=== PATIENT | male | born 1945 | race Caucasian/White ===

== ENCOUNTER 2023-02-28 13:42 | Inpatient (IN) | payer MEDICARE ==
[~2023-02-28 13:42] MED LIST: Iopamidol-370 76% 500 ML MDV (1 ML CHARGE) ONE
[2023-02-28 14:33] LABS: #Eosinphils 0.1 thou/uL (0.0-0.7); #Monocytes 0.8 thou/uL (0.11-0.59); #Neutrophils 4.6 thou/uL (1.40-6.50); %Basophils 0.5 % (0.0-1.0); %Eosinophils 1.9 % (0.0-10.0); %Lymphocytes 15.1 % (21.0-51.0); %Monocytes 11.6 % (0.0-10.0); %Neutrophils 70.7 % (42.0-75.0); Hematocrit 43.2 % (42.0-52.0); Hemoglobin 14.4 g/dL (14.0-18.0); Mean Corpuscular HGB CONC 33.3 g/dL (32.0-36.0); Mean Corpuscular Hemoglobin 29.9 pg (27.0-31.0); Mean Corpuscular Volume 89.6 fl (78.0-98.0); Mean Platelet Volume 10.1 fL (7.4-10.4); Platelet Count 188 10x3/uL (130-400); RBC Distribution Width 14.9 % (11.5-14.5); Red Blood Cell (RBC) Count 4.82 mill/uL (4.70-6.10); White Blood Cell (WBC) Count 6.5 10x3/uL (4.8-10.8)
[2023-02-28 15:00] LABS: ALT (SGPT) 11 U/L (8-55); AST (SGOT) 15 U/L (5-34); Albumin 4.3 g/dL (3.4-4.8); Alkaline Phosphatase 98 U/L (40-110); Anion Gap 13 mmol/L (10-20); BUN (Urea Nitrogen) 12 mg/dL (8.4-25.7); Bilirubin, Total 0.6 mg/dL (0.2-1.2); Calc. Creatinine Clearance 0 mL/min (70-130); Calcium 9.1 mg/dL (7.8-10.44); Carbon Dioxide 26 mmol/L (23-31); Chloride 99 mmol/L (98-107); Estimated GFR 90; Globulin 3.2 g/dL (2.4-3.5); Glucose 98 mg/dL (83-110); Potassium 4.3 mmol/L (3.5-5.1); Protein, Total 7.5 g/dL (5.8-8.1); Sodium 134 mmol/L (136-145)
[2023-02-28 15:02] LABS: Troponin I Less than 0.010 ng/mL (< 0.028)
[2023-02-28] MEDS ORDERED: hydrALAZINE 20 MG/ML VIAL SLOW IVP PRN (15:52)
[2023-02-28] MEDS: Apixaban 5 MG TAB PO SCH (20:34)
[2023-02-28] MEDS ORDERED: Atorvastatin Calcium 40 MG TAB ONE (20:36)
[2023-02-28] MEDS ORDERED: Famotidine 20 MG TAB ONE (20:36)
[2023-02-28] MEDS: Famotidine 20 MG TAB PO SCH (20:44)
[2023-02-28] MEDS: Atorvastatin Calcium 40 MG TAB PO SCH (20:44)
[2023-02-28 20:47] VITALS: BMI 25.0
[2023-03-01 05:51] LABS: Cardiac Risk 3.2 (Less than 4.5)
[2023-03-01] MEDS ORDERED: Aspirin Chewable 81 MG TAB ONE (08:28)
[2023-03-01] MEDS ORDERED: Famotidine 20 MG TAB ONE (08:28)
[2023-03-01] MEDS: Famotidine 20 MG TAB PO SCH ×2 (08:43→20:48)
[2023-03-01] MEDS: Aspirin 81 mg Enteric Coated Tablet PO SCH (08:43)
[2023-03-01] MEDS: Apixaban 5 MG TAB PO SCH ×2 (08:43→20:48)
[2023-03-01] MEDS: Atorvastatin Calcium 40 MG TAB PO SCH (20:48)
[2023-03-02] MEDS: Artificial Tear Sol 15 ML BOT EA EYE PRN ×3 (00:07→09:38)
[2023-03-02] MEDS ORDERED: FLU VACC QS2023(65UP)/MF59C/PF 60 MCG/0.5 ML SYRINGE IM ONE (09:00)
[2023-03-02] MEDS: Aspirin 81 mg Enteric Coated Tablet PO SCH (09:36)
[2023-03-02] MEDS: Apixaban 5 MG TAB PO SCH (09:37)
[2023-03-02] MEDS: Famotidine 20 MG TAB PO SCH (09:37)
[2023-03-02 15:44] VITALS: BP 120/75; TEMP 98
== END 2023-03-02 17:35 | disposition home or self-care (01) | DRG 69 ==
LOC: ERS 13:42 → ERHOLD 15:38 → 2SE 03-01 13:59 → OBSVTOIN 03-01 15:34
PROVIDERS: ADMIT Family Medicine; ATTEND Nurse Practitioner Acute Care
DX: G45.9 Transient cerebral ischemic attack, unspecified (principal); I42.9 Cardiomyopathy, unspecified; I48.21 Permanent atrial fibrillation; I10 Essential (primary) hypertension; G89.29 Other chronic pain; M54.9 Dorsalgia, unspecified; F17.210 Nicotine dependence, cigarettes, uncomplicated; E78.5 Hyperlipidemia, unspecified; D17.0 Benign lipomatous neoplasm of skin and subcutaneous tissue of head, face and neck; Z71.6 Tobacco abuse counseling; Z98.49 Cataract extraction status, unspecified eye; Z79.01 Long term (current) use of anticoagulants; Z88.0 Allergy status to penicillin; Z98.890 Other specified postprocedural states; Z88.8 Allergy status to other drugs, medicaments and biological substances; Z79.899 Other long term (current) drug therapy; Z79.82 Long term (current) use of aspirin
CPT/HCPCS: 36415; 70450; 70496; 70498; 70551; 71045; 80053; 80061; 83880; 84484; 85025; 93005; 93306; 95711; 95819; Q9967

== ENCOUNTER 2024-03-09 13:40 | Emergency (ER) | payer MEDICARE ==
[2024-03-09 14:13] LABS: #Basophils 0.03 10x3/uL (0.0-0.2); %Basophils 0.5 % (0.0-1.0); %Lymphocytes 23.7 % (21.0-51.0); %Monocytes 15.6 % (0.0-10.0); Hematocrit 42.8 % (42.0-52.0); Hemoglobin 14.5 g/dL (14.0-18.0); Mean Corpuscular HGB CONC 33.9 g/dL (32.0-36.0); Mean Corpuscular Hemoglobin 30.3 pg (27.0-31.0); Mean Corpuscular Volume 89.5 fL (78.0-98.0); Mean Platelet Volume 9.3 fL (7.4-10.4); Platelet Count 197 10x3/uL (130-400); RBC Distribution Width 15.4 % (11.5-14.5); Red Blood Cell (RBC) Count 4.78 mill/uL (4.70-6.10)
[2024-03-09 14:33] LABS: ALT (SGPT) 11 U/L (8-55); AST (SGOT) 14 U/L (5-34); Albumin 3.8 g/dL (3.4-4.8); Alkaline Phosphatase 92 U/L (40-110); Anion Gap 13 mmol/L (10-20); BUN (Urea Nitrogen) 12 mg/dL (8.4-25.7); Bilirubin, Total 0.6 mg/dL (0.2-1.2); Calc. Creatinine Clearance 0 mL/min (70-130); Calcium 9.1 mg/dL (7.8-10.44); Carbon Dioxide 25 mmol/L (23-31); Chloride 103 mmol/L (98-107); Estimated GFR 90; Glucose 89 mg/dL (83-110); Potassium 4.9 mmol/L (3.5-5.1); Protein, Total 6.8 g/dL (5.8-8.1); Sodium 136 mmol/L (136-145)
[2024-03-09 14:34] LABS: Troponin I Less than 0.010 ng/mL (< 0.028)
== END 2024-03-09 15:05 | disposition home or self-care (01) ==
LOC: ERS 13:40
DX: M25.512 Pain in left shoulder (principal); I10 Essential (primary) hypertension; E78.5 Hyperlipidemia, unspecified; I48.91 Unspecified atrial fibrillation; Z79.82 Long term (current) use of aspirin; Z79.899 Other long term (current) drug therapy; Z79.01 Long term (current) use of anticoagulants
CPT/HCPCS: 71045; 80053; 83880; 84484; 85025; 93005; 94760